=== PATIENT | male | born 1975 | race Caucasian/White ===

== ENCOUNTER 2016-11-27 13:12 | Emergency (ER) | payer BC ==
[~2016-11-27] VITALS: Ht 167.6 cm; Wt 90.7 kg
[~2016-11-27 13:12] MED LIST: CEPH500C PO; HYDR-971 PO
[2016-11-27 13:25] VITALS: BP 154/108
[2016-11-27 14:01] LABS: BASO % 1 % (0-3); EOS % 2 % (0-3); HEMATOCRIT 38.1 % (39.0-53.0); HEMOGLOBIN 12.9 g/dL (13.0-17.5); LYMPH # 3.2 x10^3/uL (1.0-4.8); LYMPH % 39 % (24-48); MEAN CORPUSCULAR HEMOGLOBIN 29 pg (25-35); MEAN CORPUSCULAR HGB CONC 34 g/dL (31-37); MEAN CORPUSCULAR VOLUME 86 fL (79-100); MONO % 7 % (0-9); NEUT % 51 % (31-73); PLATELET COUNT 319 x10^3/uL (140-400); RED BLOOD COUNT 4.42 x10^6/uL (4.30-5.70); RED CELL DISTRIBUTION WIDTH 13.5 % (11.5-14.5); WHITE BLOOD COUNT 8.4 x10^3/uL (4.0-11.0)
--- NOTE | 2016-11-27 14:07 | ED.ADGEN ---
Past Medical History Past Medical History: Kidney Stone, Migraines, Seizure, Other Additional Past Medical Histor: CHRONIC PAIN, TURRETTS Past Surgical History: Other Additional Past Surgical Histo: L WRIST SX, L KNEE SX, L SHOULDER SX Alcohol Use: None Drug Use: None Adult General Chief Complaint Chief Complaint: SEIZURE HPI HPI Patient is a 41 year old with history of Tourette's and epilepsy presents with multiple seizure episodes earlier this afternoon. At baseline, patient has 2-3 seizures daily. Today, the patient had 5 seizures lasting between 30 seconds and 2 minutes. With 2 episodes, the patient did fall hitting his head. Patient reports left frontal parietal scalp headache different than usual postictal headache. No neck pain or tenderness. Patient denies recent change medications, missed medications, illnesses a changes. No other acute symptoms or complaints. Patient's accompanied at bedside by significant other. Review of Systems Review of Systems Review symptoms as per history of present illness. All other review of symptoms negative. Current Medications Current Medications Current Medications Medications (Trade) Dose Ordered Sig/Michael Start Time Stop Time Status Last Admin Dose Admin Lorazepam (Ativan) 2 mg 1X ONCE 11/27/16 13:45 11/27/16 13:46 DC 11/27/16 13:52 2 MG Ondansetron HCl (Zofran Odt) 4 mg 1X ONCE 11/27/16 14:15 11/27/16 14:16 DC 11/27/16 14:15 4 MG Allergies Allergies Allergies Coded Allergies Type Severity Reaction Last Updated Verified Penicillins Allergy Intermediate Unknown 08/28/14 No shellfish derived Allergy Intermediate Unknown 08/28/14 No venom-honey bee Allergy Intermediate Unknown 08/28/14 No Physical Exam Physical Exam Constitutional: Well developed, well nourished, no acute distress, non-toxic appearance. HENT: Normocephalic, atraumatic, bilateral external ears normal, oropharynx moist, no oral exudates, nose normal. Eyes: PERRLA, EOMI, conjunctiva normal, no discharge. Neck: Normal range of motion, no tenderness, supple. Cardiovascular:Heart rate regular rhythm, no murmur. Lungs & Thorax: Bilateral breath sounds clear to auscultation. Abdomen: Bowel sounds normal, soft, no tenderness, no masses, no pulsatile masses. Skin: Warm, dry. Back: No tenderness, no CVA tenderness. Extremities: No tenderness, no cyanosis. Neurologic: Alert and oriented X 3, normal motor function, normal sensory function, no focal deficits noted. Psychologic: Affect normal, judgement normal, mood normal. Current Patient Data Vital Signs Vital Signs Date Time Temp Pulse Resp B/P (MAP) Pulse Ox O2 Delivery O2 Flow Rate FiO2 11/27/16 13:25 98.4 78 18 154/108 (123) 96 Room Air 98.4 Lab Values Laboratory Tests Test 11/27/16 13:48 White Blood Count 8.4 x10^3/uL (4.0-11.0) Red Blood Count 4.42 x10^6/uL (4.30-5.70) Hemoglobin 12.9 g/dL (13.0-17.5) L Hematocrit 38.1 % (39.0-53.0) L Mean Corpuscular Volume 86 fL (79-100) Mean Corpuscular Hemoglobin 29 pg (25-35) Mean Corpuscular Hemoglobin Concent 34 g/dL (31-37) Red Cell Distribution Width 13.5 % (11.5-14.5) Platelet Count 319 x10^3/uL (140-400) Neutrophils (%) (Auto) 51 % (31-73) Lymphocytes (%) (Auto) 39 % (24-48) Monocytes (%) (Auto) 7 % (0-9) Eosinophils (%) (Auto) 2 % (0-3) Basophils (%) (Auto) 1 % (0-3) Neutrophils # (Auto) 4.3 x10^3uL (1.8-7.7) Lymphocytes # (Auto) 3.2 x10^3/uL (1.0-4.8) Monocytes # (Auto) 0.6 x10^3/uL (0.0-1.1) Eosinophils # (Auto) 0.2 x10^3/uL (0.0-0.7) Basophils # (Auto) 0.0 x10^3/uL (0.0-0.2) Sodium Level 139 mmol/L (136-145) Potassium Level 3.2 mmol/L (3.5-5.1) L Chloride Level 102 mmol/L (98-107) Carbon Dioxide Level 30 mmol/L (21-32) Anion Gap 7 (6-14) Blood Urea Nitrogen 8 mg/dL (8-26) Creatinine 1.0 mg/dL (0.7-1.3) Estimated GFR (Cockcroft-Gault) 82.3 BUN/Creatinine Ratio 8 (6-20) Glucose Level 115 mg/dL (70-99) H Calcium Level 8.5 mg/dL (8.5-10.1) Total Bilirubin 0.2 mg/dL (0.2-1.0) Aspartate Amino Transferase (AST) 44 U/L (15-37) H Alanine Aminotransferase (ALT) 55 U/L (16-63) Alkaline Phosphatase 85 U/L (46-116) Total Protein 7.9 g/dL (6.4-8.2) Albumin 3.7 g/dL (3.4-5.0) Albumin/Globulin Ratio 0.9 (1.0-1.7) L Phenytoin (Dilantin) Level 16.9 mcg/mL (10.0-20.0) Phenytoin Last Dose Date Phenytoin Last Dose Time Laboratory Tests 11/27/16 13:48 Laboratory Tests 11/27/16 13:48 EKG EKG [] Radiology/Procedures Radiology/Procedures [CT head: No intracranial injury per radiology report.] Course & Med Decision Making Course & Med Decision Making Pertinent Labs and Imaging studies reviewed. (See chart for details) [Ativan given. Dilantin therapeutic. No known neurologic deficits on evaluation. CT head negative. Patient with closed head injury instructions and epilepsy instructions given prior to departure.] Dragon Disclaimer Dragon Disclaimer This electronic medical record was generated, in whole or in part, using a voice recognition dictation system. ALLI CRAIG DO Nov 27, 2016 14:07
[2016-11-27 14:11] LABS: ANION GAP 7 (6-14); BLOOD UREA NITROGEN 8 mg/dL (8-26); BUN/CREATININE RATIO 8 (6-20); CALCIUM 8.5 mg/dL (8.5-10.1); CARBON DIOXIDE 30 mmol/L (21-32); CHLORIDE 102 mmol/L (98-107); GFR 82.3; GLUCOSE 115 mg/dL (70-99); POTASSIUM 3.2 mmol/L (3.5-5.1); SODIUM 139 mmol/L (136-145)
[2016-11-27] MEDS ORDERED: ONDANSETRON ODT 4 MG TAB.RAPDIS. PO ONE (14:15)
--- NOTE | 2016-11-27 14:15 | RAD ---
Indication closed head injury. Noncontrast images of the head were obtained. Comparison is made to a study 02/10/2012. There is a subtle lucency in the right frontal lobe. This is suggested on the previous exam but is not certain. A chronic area of microvascular disease accounting for the appearance is not excluded. Recent infarct is is not entirely excluded but is felt unlikely. If additional evaluation is warranted an MRI examination could be performed. There is no evidence of hemorrhage. There is no subdural or epidural hematoma. No mass or midline shift is apparent. A definite acute intracranial finding is not seen. The calvarium appears unremarkable and the visualized paranasal sinuses appear normal. IMPRESSION: No definite evidence of an acute intracranial finding. No evidence of hemorrhage. Possible chronic ischemic change associated with the right frontal lobe. The finding is not certain. PQRS Compliance Statement: One or more of the following individualized dose reduction techniques were utilized for this examination: 1. Automated exposure control 2. Adjustment of the mA and/or kV according to patient size 3. Use of iterative reconstruction technique
[2016-11-27 14:17] LABS: ALBUMIN 3.7 g/dL (3.4-5.0); ALBUMIN/GLOBULIN RATIO 0.9 (1.0-1.7); ALK PHOS 85 U/L (46-116); ALT (SGPT) 55 U/L (16-63); AST (SGOT) 44 U/L (15-37); TOTAL BILIRUBIN 0.2 mg/dL (0.2-1.0); TOTAL PROTEIN 7.9 g/dL (6.4-8.2)
== END 2016-11-27 16:05 | disposition home or self-care (01) ==
LOC: ER 13:12
DX: G40.909 Epilepsy, unspecified, not intractable, without status epilepticus (principal); S09.90XA Unspecified injury of head, initial encounter; G89.29 Other chronic pain; G43.909 Migraine, unspecified, not intractable, without status migrainosus; F95.2 Tourette's disorder; Z88.0 Allergy status to penicillin; Z91.013 Allergy to seafood; Z91.030 Bee allergy status; Z87.442 Personal history of urinary calculi; W01.10XA Fall on same level from slipping, tripping and stumbling with subsequent striking against unspecified object, initial encounter; Y93.89 Activity, other specified; Y92.89 Other specified places as the place of occurrence of the external cause; Y99.8 Other external cause status
CPT/HCPCS: 36415; 70450; 80053; 80185; 85027; 96372; 99285; J2060; Q0162